=== PATIENT | male | born 1985 | race Two or more races ===

== ENCOUNTER 2025-01-12 20:40 | Emergency (ER) | payer MEDICAID, SELFPAY ==
--- NOTE | 2025-01-12 20:46 | EKG_ITS ---
[facility] Test Date: 2025-01-12 Pat Name: NIK SCHWARZ Department: Room: - Gender: Male [employer]: : 1985 Requested By: ED Temporary Provider Order Number: [id number] Reading MD: ED Temporary Provider Measurements Intervals [place] Rate: 110 P: 83 NC: 137 QRS: 53 QRSD: 74 T: 53 QT: 314 QTc: 426 Interpretive Statements SINUS TACHYCARDIA ABNORMAL RHYTHM ECG No previous ECG available for comparison /store/[email or web address]/[id number]/ecg/[id number].pdf
[2025-01-12 20:48] VITALS: BP 160/99; PULSE 113; RESP 18; TEMP 36.8; O2SAT 98
--- NOTE | 2025-01-12 21:08 | XR_ITS ---
Examination: PA chest single view Technique: Upright PA chest single view Exam date and time: January 12, 2025 2118 hrs. Indications: Chest pain today Findings: Normal heart size. Lungs are clear. The osseous structures are intact Impression: No active disease
[2025-01-12 21:51] LABS: Basophils % (Auto) 1 % (0-2.5); Eosinophils # (Auto) 0.1 Thou/mm3 (0.0-0.5); Eosinophils % (Auto) 1 % (0-10); Hematocrit 42.8 % (41.0-53.0); Hemoglobin 14.8 g/dL (13.5-16.0); Immature Granulocytes % (Auto) 0 % (0-0); Immature Granulocytes Auto 0.01 Thou/mm3 (0.00-0.00); Lymphocytes # (Auto) 1.6 Thou/mm3 (1.0-4.8); Lymphocytes % (Auto) 27 % (10-50); Mean Corpuscular HGB Conc 34.6 g/dl (31.0-37.0); Mean Corpuscular Hemoglobin 28.9 pg (25.0-35.0); Mean Corpuscular Volume 84 fL (80-100); Monocytes # (Auto) 0.4 Thou/mm3 (0.0-0.8); Monocytes % (Auto) 7 % (0-12); Neutrophils # (Auto) 3.9 Thou/mm3 (1.8-7.7); Neutrophils % (Auto) 64 % (37-80); Nucleated Red Blood Cell % 0 /100 WBC (0); Platelet Count 317 Thou/mm3 (140-440); RDW Standard Deviation 36.8 fL (35.1-43.9); Red Blood Count 5.12 Miln/mm3 (4.50-5.90)
[2025-01-12 22:02] LABS: Amphetamine/Methamp Scrn,U Negative (Negative); Barbiturate Screen,Urine Negative (Negative); Benzodiazepines Screen,Urine Negative (Negative); Benzoylecgonine Screen, Ur Positive (Negative); Fentanyl Screen,Urine Negative (Negative); Opiate Screen,Urine Negative (Negative); THC Screen,Urine Negative (Negative)
[2025-01-12 22:07] LABS: Alanine Aminotransferase 32 U/L (10-49); Albumin, Serum 4.5 gm/dL (3.5-5.0); Albumin/Globulin Ratio 1.5 (1.2-2.2); Alkaline Phosphatase 120 U/L (46-116); Anion Gap 8 (7-16); Aspartate Amino Transferase 30 U/L (0-34); BUN/Creatinine Ratio 10 Ratio (12-20); Bilirubin,Total 0.6 mg/dL (0.3-1.2); Blood Urea Nitrogen 10 mg/dL (9-23); Calcium 9.4 mg/dL (8.3-10.6); Calcium (Corrected) 9.4 mg/dL (8.5-10.1); Carbon Dioxide 27.1 mMol/L (20.0-31.0); Chloride 104 mMol/L (98-107); D-Dimer < 250 ng/mL (<600); Glucose 93 mg/dL (74-106); Osmolality,Calculated 276 (275-295); Potassium 3.7 mMol/L (3.4-5.1); Sodium 139 mMol/L (136-145); Total Protein 7.5 gm/dL (5.7-8.2); Troponin I < 0.002 ng/mL (0.0-0.045); eGFR > 60 See Note
[2025-01-13 00:21] VITALS: BP 162/97; PULSE 75; RESP 18; TEMP 36.9; O2SAT 99
[2025-01-13 01:00] LABS: Troponin I < 0.002 ng/mL (0.0-0.045)
--- NOTE | 2025-01-13 03:49 | EDNOTE_ITS ---
ED Chest Pain RME/HPI General Chief Complaint: Chest Pain Stated Complaint: CP/NUMB LEFT ARM FOR 15 MIN Time Seen by Provider: 01/12/25 21:07 Arrival date/time: 01/12/25 20:40 39M with history of drug use presents to ED with 1 hour of CP today. Patient snorted cocaine at work today. Limitations: no limitations Related Data Allergies Allergy/AdvReac Type Severity Reaction Status Date / Time No Known Allergies Allergy Verified 01/12/25 20:44 Review of Systems Review of Systems Systems Reviewed: All systems reviewed, normal except as documented Constitutional Constitutional: Reports system reviewed and no additional complaints, except as documented, Denies fever(s) and Denies headache(s) ENT Ears, Nose, Mouth, and Throat: Denies disequilibrium and Denies headache(s) Cardiovascular Cardiovascular: Reports system reviewed and no additional complaints, except as documented, Reports as per HPI, Reports chest pain and Denies dyspnea Respiratory Respiratory: Reports system reviewed and no additional complaints, except as documented, Denies cough and Denies dyspnea Gastrointestinal Gastrointestinal: Reports system reviewed and no additional complaints, except as documented, Denies abdominal pain, Denies nausea and Denies vomiting Neurologic Neurologic: Reports system reviewed and no additional complaints, except as documented, Denies confusion, Denies disequilibrium and Denies headache(s) Psychiatric Psychiatric: Denies confusion Past Medical History Social History SMOKING STATUS: Former smoker ED Exam General Limitations: Present no limitations General appearance: Present alert, in no apparent distress and anxious (mild) Head Head exam: Present atraumatic Eye Eye exam: Present normal appearance, PERRL and EOMI ENT ENT exam: Present normal exam, normal oropharynx and mucous membranes moist Neck Neck exam: Present normal inspection, full ROM and trachea midline Chest Chest inspection: Present normal inspection and symmetric chest wall rise Respiratory Respiratory exam: Present normal lung sounds bilaterally Cardiovascular Cardiovascular exam: Present regular rate, normal rhythm and normal heart sounds Abdominal Exam Abdominal exam: Present soft and normal bowel sounds Extremities Exam Extremities exam: Present normal inspection and full ROM Back Exam Back exam: Present normal inspection and full ROM Neurological Exam Neurological exam: Present alert, oriented X3 and CN II-XII intact Psychiatric Psychiatric exam: Present normal affect and normal mood Skin Skin exam: Present warm, dry, intact and normal color Course Quality Measures none Orders Category Date Time Status EKG (ED ONLY) *Do not use* NOW Care 01/12/25 20:46 Completed EKG (ED Only) Stat Exams 01/12/25 20:46 Draft XR chest 1V portable Stat Exams 01/12/25 21:08 Completed CBC Stat Lab 01/12/25 21:26 Completed Comprehensive Metabolic Panel Stat Lab 01/12/25 21:26 Completed D-Dimer Stat Lab 01/12/25 21:26 Completed Drug Screen,Urine Stat Lab 01/12/25 21:45 Completed Troponin I Stat Lab 01/12/25 21:26 Completed Troponin I Stat Lab 01/12/25 23:54 Completed Vital Signs Vital signs: Vital Signs Temperature 98.3 F 01/12/25 20:48 Pulse Rate 113 H 01/12/25 20:48 Respiratory Rate 18 01/12/25 20:48 Blood Pressure 160/99 H 01/12/25 20:48 Pulse Oximetry (%) 98 01/12/25 20:48 Oxygen Delivery Method Room Air 01/12/25 20:48 O2 at 98% on RA and WNLs Chest Pain MDM Narrative MDM Narrative:: 39M with history of drug use presents to ED with 1 hour of CP today. Patient snorted cocaine at work today. Physical exam reveals clear lungs. RRR. Patient is afebrile, alert, but mildly anxious. EKG is sinus tach of 110. CXR normal. Trop (2x) normal. D-dimer normal. CBC and CMP unremarkable. Tox screen positive for cocaine. Patient data External records reviewed:: None Clinical information provided by:: patient Social determinants that could affect healthcare access:: substance use Patient has the following chronic illnesses:: none How is presenting disease/condition affected by chronic disease/condition?: no chronic disease Evaluation data The following diagnostics were reviewed and interpreted by me:: lab results, radiology exam(s) and EKG tracing(s) Lab and/or radiology exams considered but not ordered:: ordered Interpretation Summary: above Medications / Prescriptions Medications or Prescriptions considered but not ordered:: not ordered Medication administrations:: n/a Consultations Consultation(s) initiated? (list below): No Diagnosis Chest Pain Differential Diagnosis: fracture of rib, pneumothorax, stable angina, unstable angina pectoris, atypical chest pain, st elevation myocardial infarction, costochondritis, chest pain, biliary colic and other (cocaine use) Most likely diagnosis given after review of the tests above:: cocaine use Admission Indicated Admission indicated?: not indicated Admission Request Was there a request for admission?: No Disposition Plan Disposition Plan: Discharge Discharge Attestation Discharge Attestation: The patient and all family members were given an opportunity to ask questions and understood the discharge instructions. Discharge instructions specifically effects, indications for sooner follow up or return to the emergency department, and the expected course of current diagnosis. Patient condition: Stable Discharge Plan Plan Patient Disposition: HOME (Self Care) Disposition Comment: Stable Prescriptions/Referrals Referrals: No Primary/Family,Physician [Primary Care Provider] - In 1 week Problem List Clinical Impression: Cocaine use Patient/Caregiver Discharge Instructions Education Materials: Substance Abuse and Traumatic ... Additional Instructions: Please follow-up with PCP within 24-48 hours and return immediately if symptoms worsen. Stop doing drugs. Print Language: Mozambican Stand Alone Forms: Patient Portal Info Letter KERON/RADHA Supervising Physician NICOLASA Supervising Physician: Dr. Montgomery
== END 2025-01-13 01:30 | disposition home or self-care (01) ==
PROVIDERS: Physician Assistant; Emergency Provider Emergency Medicine
DX: F14.90 Cocaine use, unspecified, uncomplicated (principal); R07.9 Chest pain, unspecified
CPT/HCPCS: 36415; 71045; 80053; 80307; 84484; 85025; 85379; 93005; 99283